=== PATIENT | female | born 1950 | race Caucasian/White ===

== ENCOUNTER 2024-02-07 09:50 | Emergency (ER) | payer OTHER ==
[2024-02-07] MEDS ORDERED: DICYCLOMINE HCL 20 MG/2 ML AMP IM ONE (10:18)
[2024-02-07] MEDS ORDERED: NA CHLORIDE 0.9% 500 ML ONE (10:18)
[2024-02-07] MEDS ORDERED: METOCLOPRAMIDE 10 MG/2mL INJ ONE (10:18)
[2024-02-07] MEDS ORDERED: DICYCLOMINE HCL 10 MG CAP ONE (10:19)
[2024-02-07 10:39] LABS: Absolute Eosinophils 0.1 K/uL (0-0.5); Absolute Lymphocytes (CBC) 1.1 K/uL (0.7-4.9); Absolute Monocytes 0.1 K/uL (0.1-1.3); Absolute Neutrophil 2.9 K/uL (1.8-8.0); Basophils % 0.8 % (0-1.3); Eosinophils % 3.2 % (0-4.4); Hematocrit 37.6 % (36.0-45.0); Hemoglobin 12.9 g/dL (12.0-15.0); Lymphocytes % 25.3 % (15.3-44.8); MCH 31.3 pg (27.0-35.0); MCHC 34.2 g/dL (32.0-36.0); MCV 91.6 fL (80-100); MPV 8.2 fL (7.6-11.3); Monocytes % 2.1 % (3.3-12.3); Neutrophils % 68.6 % (41.7-73.7); Nucleated Red Blood Cells % 0.6 % (0-0); Platelets 408 thou/uL (152-406); Red Cell Distribution Width 16.5 % (12.1-15.2)
[2024-02-07 10:55] LABS: Specific Gravity 1.026 (1.005-1.030); Sqamous Epithelial <5 /HPF (None Seen); Urine Bacteria None Seen /HPF (<20); Urine Bilirubin NEGATIVE (Negative); Urine Blood Negative (Negative); Urine Clarity Extremely Turbid (Clear); Urine Color Yellow (Yellow); Urine Culture Reflex Order NOT NEEDED; Urine Glucose NEGATIVE (Negative); Urine Ketones NEGATIVE (Negative); Urine Microscopic Reflex YN ORDER UMIC; Urine Mucus 2+ /HPF (None Seen); Urine Nitrite NEGATIVE (Negative); Urine Protein 1+ (Negative); Urine RBC <5 /HPF (None Seen); Urine Urobilinogen 1+ (Normal); Urine WBC <5 /HPF (<5); Urine pH 6.5 (5.0-7.0)
[2024-02-07 11:01] LABS: Albumin 3.5 g/dL (3.4-5.0); Albumin/Globulin Ratio 1.1 (1.1-1.8); Anion Gap 10.4 mEq/L (5.0-15.0); Bilirubin Total 0.8 mg/dL (0.2-1.0); Globulin 3.2 g/dL (2.3-3.5); Potassium 3.4 mEq/L (3.5-5.1); Protein, Total 6.7 g/dL (6.4-8.2)
--- NOTE | 2024-02-07 11:31 | RAD REPORT ---
EXAMINATION: CT ABDOMEN AND PELVIS WITH CONTRAST CLINICAL INDICATION: Female, 73 years old.lower abdomen pain, diarrhea TECHNIQUE: CT abdomen and pelvis was performed, after the administration of IV contrast, as per [facility] protocol. Axial, sagittal and coronal reconstructions were obtained. One or more of the following dose reduction techniques were used: Automated exposure control, adjustment of the mA and/o r kV according to patient size, and/or iterative reconstruction. Unless otherwise specified, incidental findings do not require dedicated imaging follow-up. [id number]. COMPARISON: No prior exam. FINDINGS: LOWER CHEST: Coronary calcific indications. LIVER: Normal in size and contour. No focal lesion. GALLBLADDER/BILE DUCT: Cholecystectomy? PANCREAS: Atrophic pancreas. SPLEEN: Normal size. No focal lesion. ADRENALS: Normal; no mass. KIDNEYS AND URETERS: Normal size and contour. No hydronephrosis. GASTROINTESTINAL TRACT: Mild wall thickening at the descending colon, sigmoid colon, and rectum with hyperenhancement. No bowel obstruction. No appendicitis. PERITONEUM: No ascites. LYMPH NODES: No lymphadenopathy. ABDOMINAL AORTA AND OTHER VESSELS: Normal caliber aorta and IVC. Atherosclerosis URINARY BLADDER: Normal contour. REPRODUCTIVE ORGANS: No pathologic process MUSCULOSKELETAL: No acute or suspicious osseous abnormality. ADDITIONAL FINDINGS: None. IMPRESSION: Mild wall thickening involving the descending colon to the rectum could reflect a mild colitis. No ot her acute findings identified. A few incidental findings as noted above.
--- NOTE | 2024-02-07 12:19 | ER ---
Nurse's Notes [facility] Name: Francoise Gallegos Age: 73 yrs Sex: Female : 1950 Arrival Date: 02/07/2024 Time: 09:50 Bed 15 Private MD: Diagnosis: Indeterminate colitis Presentation: 02/06 10:06 Chief complaint: Patient states: I am having lower abdominal cramps. The cancer center jb4 gave me Dexamethasone and it is not helping. I am also having diarrhea as well. Coronavirus screen: At this time, the client does not indicate any symptoms associated with coronavirus-19. Ebola Screen: No symptoms or risks identified at this time. Initial Sepsis Screen: Does the patient meet any 2 criteria? HR > 90 bpm. Yes Does the patient have a suspected source of infection? No. Patient's initial sepsis screen is negative. Risk Assessment: Do you want to hurt yourself or someone else? Patient reports no desire to harm self or others. Onset of symptoms was February 07, 2024. Transition of care: patient was not received from another setting of care. 10:06 Method Of Arrival: Ambulatory jb4 10:06 Acuity: MARTITA 3 jb4 Triage Assessment: 10:08 General: Appears in no apparent distress. uncomfortable, Behavior is calm, cooperative, jb4 appropriate for age. Pain: Complains of pain in left lower quadrant Pain does not radiate. Pain currently is 8 out of 10 on a pain scale. Quality of pain is described as crampy. Neuro: Level of Consciousness is awake, alert, obeys commands, Oriented to person, place, time, situation. Cardiovascular: Patient's skin is warm and dry. Respiratory: Airway is patent Respiratory effort is even, unlabored, Respiratory pattern is regular, symmetrical. GI: Abdomen is flat, non-distended, Reports lower abdominal pain, cramping, diarrhea. Derm: Skin is intact, Skin is pink, warm \T\ dry. Musculoskeletal: Circulation, motion, and sensation intact. Range of motion: intact in all extremities. Historical: - Allergies: 10:08 Levaquin; jb4 10:08 Flomax; jb4 10:08 Codeine; jb4 10:08 Adhesives; jb4 - PMHx: 10:08 Hypercholesterolemia; Hypertensive disorder; Diabetes mellitus; breast cancer; jb4 Parkinson's disease; IBS; - PSHx: 10:08 Cardiac stent; Cholecystectomy; hysterectomy; Nasal surgery; L shoulder; jb4 - Immunization history:: Adult Immunizations up to date. - Infectious Disease History:: Denies. - Social history:: Smoking status: Patient denies any tobacco usage or history of. Screenin:15 [facility] ED Fall Risk Assessment (Adult) History of falling in the last 3 months, ph including since admission No falls in past 3 months (0 pts) Confusion or Disorientation No (0 pts) Intoxicated or Sedated No (0 pts) Impaired Gait No (0 pts) Mobility Assist Device Used No (0 pt) Altered Elimination No (0 pt) Score/Fall Risk Level 0 - 2 = Low Risk Oriented to surroundings, Maintained a safe environment, Hourly rounding (assess needs \T\ fall precautionary measures) done. Abuse screen: Denies threats or abuse. Denies injuries from another. Nutritional screening: No deficits noted. Tuberculosis screening: No symptoms or risk factors identified. Assessment: 10:30 General: Appears in no apparent distress. comfortable, well groomed, Behavior is calm, ph cooperative, appropriate for age. Pain: Complains of pain in left lower quadrant. Neuro: Level of Consciousness is awake, alert, obeys commands, Oriented to person, place, time, situation. Cardiovascular: Capillary refill < 3 seconds in bilateral fingers Patient's skin is warm and dry. Respiratory: Airway is patent Respiratory effort is even, unlabored. GI: Bowel sounds present X 4 quads. Abd is soft X 4 quads Reports lower abdominal pain, diarrhea, Patient currently denies vomiting. Derm: Skin is pink, warm \T\ dry. Vital Signs: 10:06 BP 156 / 93; Pulse 96; Resp 16; Temp 98.4(O); Pulse Ox 98% on R/A; Weight 75.3 kg (R); jb4 Height 5 ft. 7 in. (R); Pain 8/10; 11:15 BP 142 / 78; Pulse 89; Resp 18; Pulse Ox 98% on R/A; ph 12:30 BP 150 / 90; Pulse 73; Resp 16; Temp 98.5; Pulse Ox 100% ; me1 10:06 Body Mass Index 26.00 (75.30 kg, 170.18 cm) [facility] 10:06 Pain Scale: Adult jb4 ED Course: 09:55 Patient arrived in ED. mg5 09:56 Geoffrey Whitaker PA is PHCP. cp 09:56 Bin Davis MD is Attending Physician. cp 10:00 Vanessa Weathers, DOMINIK is Primary Nurse. ph 10:08 Triage completed. jb4 10:08 Arm band placed on right wrist. jb4 10:25 Initial lab(s) drawn, by me, sent to lab. Urine collected: clean catch specimen. ph Inserted saline lock: 22 gauge in left antecubital area, using aseptic technique. Blood collected. Flushed with 10 mL NS. 11:15 Patient has correct armband on for positive identification. Bed in low position. Call ph light in reach. Side rails up X 1. Pulse ox on. NIBP on. Door closed. Noise minimized. Warm blanket given. Pillow given. 11:22 CT Abd/Pelvis - IV Contrast Only In Process Unspecified. EDMS 12:39 No provider procedures requiring assistance completed. IV discontinued, intact, me1 bleeding controlled, No redness/swelling at site. Pressure dressing applied. 12:40 Provided Education on: Medication and follow up, verbalized understanding.. me1 Administered Medications: 10:30 Drug: Dicyclomine IM 20 mg IM once Route: IM; Site: right deltoid; ph 12:06 Follow up: Response: No adverse reaction ph 10:30 Drug: metoCLOPramide IVP 10 mg IVP once; over 1 to 2 minutes Route: IVP; Site: left ph antecubital; 12:06 Follow up: Response: No adverse reaction ph 10:30 Drug: NS 0.9% IV 500 ml 500 ml IV at 1 bolus once; to be given as a bolus over 60 ph minutes Volume: 500 ml; Route: IV; Rate: 1 bolus; Site: left antecubital; 11:00 Follow up: Response: No adverse reaction; IV Status: Completed infusion; IV Intake: ph 500ml 12:29 Drug: Amoxicillin-Clavulanate PO 875 mg PO once Route: PO; me1 12:39 Follow up: Response: No adverse reaction me1 Medication: 11:15 VIS not applicable for this client. ph Intake: 11:00 IV: 500ml; Total: 500ml. ph Outcome: 12:18 Discharge ordered by . cp 12:39 Discharged to home ambulatory, with significant other, me1 12:39 Condition: stable 12:39 Discharge instructions given to patient, significant other, Instructed on discharge instructions, follow up and referral plans. medication usage, Demonstrated understanding of instructions, follow-up care, medications, Prescriptions given X 3, 12:40 Patient left the ED. me1 Signatures: Dispatcher [employer] Vanessa Dial RN RN Geoffrey Yun PA PA cp Bryson, James, RN RN jb4 Leatha Zarco RN RN me1 Mackenzie Dalton mg5 Corrections: (The following items were deleted from the chart) 10:10 10:08 PMHx: Cardiac stent; jose [email or web address] jb4
--- NOTE | 2024-02-07 12:19 | EDPHYS ---
Physician Documentation [facility] Name: Francoise Gallegos Age: 73 yrs Sex: Female : 1950 Arrival Date: 02/07/2024 Time: 09:50 Bed 15 Private MD: ED Physician Bin Davis HPI: 02/06 10:10 This 73 yrs old Female presents to ER via Ambulatory with complaints of Abdominal Pain. cp 10:10 The patient presents with abdominal pain in the lower abdomen. cp 10:10 Onset: The symptoms/episode began/occurred this morning. Associated signs and symptoms: cp Pertinent positives: nausea, chronic diarrhea that is worse today, Pertinent negatives: blood in stools, chest pain, constipation, fever, vomiting. The symptoms are described as crampy. Historical: - Allergies: 10:08 Levaquin; jb4 10:08 Flomax; jb4 10:08 Codeine; jb4 10:08 Adhesives; jb4 - PMHx: 10:08 Hypercholesterolemia; Hypertensive disorder; Diabetes mellitus; breast cancer; jb4 Parkinson's disease; IBS; - PSHx: 10:08 Cardiac stent; Cholecystectomy; hysterectomy; Nasal surgery; L shoulder; jb4 - Immunization history:: Adult Immunizations up to date. - Infectious Disease History:: Denies. - Social history:: Smoking status: Patient denies any tobacco usage or history of. ROS: 10:15 Constitutional: Negative for body aches, chills, fever, poor PO intake, cp 10:15 Eyes: Negative for injury, pain, redness, and discharge, cp 10:15 Cardiovascular: Negative for chest pain, 10:15 Respiratory: Negative for cough, shortness of breath, wheezing, 10:15 Abdomen/GI: Positive for abdominal pain, diarrhea, Negative for vomiting, constipation, 10:15 Neuro: Negative for altered mental status, dizziness, headache, weakness, cp 10:15 All other systems are negative, cp Exam: 10:20 Constitutional: The patient appears in no acute distress, alert, awake, non-toxic, well cp developed, well nourished, uncomfortable, 10:20 Head/Face: Normocephalic, atraumatic. cp 10:20 Eyes: Periorbital structures: appear normal, Conjunctiva: normal, no exudate, no cp injection, Sclera: no appreciated abnormality, Lids and lashes: appear normal, bilaterally, 10:20 ENT: External ear(s): are unremarkable, Nose: is normal, Mouth: Lips: moist, Oral mucosa: moist, Posterior pharynx: Airway: no evidence of obstruction, patent, 10:20 Chest/axilla: Inspection: normal, 10:20 Cardiovascular: Rate: normal, Rhythm: regular, Edema: is not appreciated, JVD: is not cp appreciated, 10:20 Respiratory: the patient does not display signs of respiratory distress, Respirations: normal, no use of accessory muscles, no retractions, labored breathing, is not present, Breath sounds: are clear throughout, no decreased breath sounds, no stridor, no wheezing, 10:20 Abdomen/GI: Inspection: abdomen appears normal, Bowel sounds: active, all quadrants, Palpation: soft, in all quadrants, moderate abdominal tenderness, in the right lower quadrant and left lower quadrant, rebound tenderness, is not appreciated, involuntary guarding, is not appreciated, 10:20 Back: pain, is absent, ROM is normal, 10:20 Neuro: Orientation: to person, place \T\ time. Mentation: is normal, Motor: moves all fours, strength is normal, Sensation: is normal, Vital Signs: 10:06 BP 156 / 93; Pulse 96; Resp 16; Temp 98.4(O); Pulse Ox 98% on R/A; Weight 75.3 kg (R); jb4 Height 5 ft. 7 in. (R); Pain 8/10; 11:15 BP 142 / 78; Pulse 89; Resp 18; Pulse Ox 98% on R/A; ph 12:30 BP 150 / 90; Pulse 73; Resp 16; Temp 98.5; Pulse Ox 100% ; me1 10:06 Body Mass Index 26.00 (75.30 kg, 170.18 cm) jb4 10:06 Pain Scale: Adult jb4 MDM: 10:03 Medical Screening Exam initiated cp 11:00 Differential diagnosis: appendicitis, bowel obstruction, diverticulitis, gastritis, cp non-specific abd pain, pancreatitis, Pyelonephritis, Ureterolithiasis, urinary tract infection, colitis. 12:17 Data reviewed: vital signs, nurses notes, lab test result(s), radiologic studies, and cp as a result, I will discharge patient. 12:17 I considered the following discharge prescriptions or medication management in the emergency department Medications were administered in the Emergency Department. See MAR. Special discussion: Based on the patient's Hx, exam, and Dx evaluation, there is no indication for emergent surgery or inpatient Tx. It is understood by the patient/guardian that if the Sx's persist or worsen they need to return immediately for re-evaluation. 02/06 10:11 Order name: CBC with Diff; Complete Time: 10:53 02/06 10:53 Interpretation: Normal except: PLT 408; RDW 16.5; MN% 2.1. 02/06 10:11 Order name: CMP; Complete Time: 11:08 02/06 11:09 Interpretation: Normal except: K 3.4; GLUC 190; GFR 69; AST 13. 02/06 10:11 Order name: Lipase; Complete Time: 11:08 02/06 11:12 Interpretation: Reviewed. 02/06 10:11 Order name: Urinalysis w/ reflexes; Complete Time: 11:01 02/06 11:01 Interpretation: Normal except: [facility] Extremely Turbid; UPROT 1+; UUROB 1+; HYAL 5-10. 02/06 10:11 Order name: CT Abd/Pelvis - IV Contrast Only; Complete Time: 11:44 02/06 10:11 Order name: IV Saline Lock; Complete Time: 11:09 02/06 10:11 Order name: Labs collected and sent; Complete Time: 11:09 Administered Medications: 10:30 Drug: Dicyclomine IM 20 mg IM once Route: IM; Site: right deltoid; ph 12:06 Follow up: Response: No adverse reaction ph 10:30 Drug: metoCLOPramide IVP 10 mg IVP once; over 1 to 2 minutes Route: IVP; Site: left ph antecubital; 12:06 Follow up: Response: No adverse reaction ph 10:30 Drug: NS 0.9% IV 500 ml 500 ml IV at 1 bolus once; to be given as a bolus over 60 ph minutes Volume: 500 ml; Route: IV; Rate: 1 bolus; Site: left antecubital; 11:00 Follow up: Response: No adverse reaction; IV Status: Completed infusion; IV Intake: ph 500ml 12:29 Drug: Amoxicillin-Clavulanate PO 875 mg PO once Route: PO; me1 12:39 Follow up: Response: No adverse reaction me1 Disposition: 19:37 Co-signature as Attending Physician, Bin Davis MD I reviewed the patient's care rn provided by the Advanced Practice Provider and agree with the diagnosis and treatment plan. Disposition Summary: 02/07/24 12:18 Discharge Ordered Notes: Location: Home cp Problem: new cp Symptoms: have improved cp Condition: Stable cp Diagnosis - Indeterminate colitis cp Followup: cp - With: Private Physician - When: 2 - 3 days - Reason: Recheck today's complaints Discharge Instructions: - Discharge Summary Sheet cp - Colitis cp Forms: - Medication Reconciliation Form cp - Antibiotic Education cp - Prescription Opioid Use cp - Patient Portal Instructions cp - Leadership Thank You Letter cp Prescriptions: - Augmentin 875-125 mg Oral Tablet - take 1 tablet ORAL route every 12 hours for 10 days; 20 tablet; Refills: 0, cp Product Selection Permitted - Reglan 10 mg Oral Tablet - take 1 tablet ORAL route every 6 hours take 30 minutes before meals and at cp bedtime; 20 tablet; Refills: 0, Product Selection Permitted - dicyclomine 20 mg Oral tablet - take 1 tablet ORAL route 4 times per day; 30 tablet; Refills: 0, Product cp Selection Permitted Signatures: Dispatcher [employer] EDBin Treadwell MD MD rn Hall, Patricia, RN RN ph Page, Corey, PA PA cp Bryson, James, RN RN jose [email or web address] Leatha Zarco RN RN me1 Corrections: (The following items were deleted from the chart) 10:10 10:08 PMHx: Cardiac stent; taco españa 11:45 11:45 Ova and Parasites+MR.LAB.BRZ ordered. EDPR EDPR 11:45 11:45 Rotavirus Antigen+BA.LAB.BRZ ordered. EDPR EDPR 11:45 11:45 Stool Culture+BA.LAB.BRZ ordered. EDPR EDPR 11:45 11:45 C.difficile GDH Ag \T\ Toxin AB+LAB.BRZ ordered. EDPR EDPR 12 12:19 12 11:00 Differential diagnosis: appendicitis, bowel obstruction, diverticulitis, cp gastritis, non-specific abd pain, pancreatitis, Pyelonephritis, Ureterolithiasis, urinary tract infection, cp
[2024-02-07] MEDS ORDERED: AMOX/K CLAV 875 MG TAB ONE (12:27)
[2024-02-07 13:25] VITALS: BP 150/90; TEMP 98.5; O2SAT 100
== END 2024-02-07 12:40 | disposition home or self-care (01) ==
LOC: ER 09:50
DX: K52.3 Indeterminate colitis (principal); E11.9 Type 2 diabetes mellitus without complications; I10 Essential (primary) hypertension; Z95.818 Presence of other cardiac implants and grafts; G20.A1 Parkinson's disease without dyskinesia, without mention of fluctuations
CPT/HCPCS: 85025; 81001; 36415; 83690; 80053; 74177; 96372; 96374; 99284; Q9967; J2765; J7040; J0500

== ENCOUNTER 2024-03-04 14:42 | Emergency (ER) | payer OTHER ==
--- NOTE | 2024-03-04 15:22 | RAD REPORT ---
EXAMINATION: ONE VIEW CHEST XR CLINICAL INDICATION: CHEST PAIN TECHNIQUE: Frontal chest projection is submitted. Examination is limited by patient positioning and t echnique. COMPARISON: No prior exam. FINDINGS: The lungs are well inflated and clear. The heart is normal in size. No displaced fractures identified . Left-sided port catheter is tip in SVC. IMPRESSION: No acute intrathoracic abnormalities.
[2024-03-04] MEDS ORDERED: MORPHINE 4 MG/ML SYR ONE (16:17)
[2024-03-04 16:23] LABS: Absolute Lymphocytes (CBC) 0.9 K/uL (0.7-4.9); Absolute Monocytes 0.2 K/uL (0.1-1.3); Absolute Neutrophil 4.1 K/uL (1.8-8.0); Basophils % 0.5 % (0-1.3); Eosinophils % 0.9 % (0-4.4); Hematocrit 31.3 % (36.0-45.0); Hemoglobin 10.8 g/dL (12.0-15.0); Lymphocytes % 16.5 % (15.3-44.8); MCH 32.1 pg (27.0-35.0); MCHC 34.4 g/dL (32.0-36.0); MCV 93.4 fL (80-100); MPV 7.6 fL (7.6-11.3); Monocytes % 4.3 % (3.3-12.3); Neutrophils % 77.8 % (41.7-73.7); Nucleated Red Blood Cells % 0.4 % (0-0); Platelets 330 thou/uL (152-406); RBC Red Blood Cell Count 3.35 M/uL (3.86-4.86); Red Cell Distribution Width 18.5 % (12.1-15.2)
[2024-03-04 16:25] LABS: PT Prothrombin Time 12.7 SECONDS (9.4-12.5); Protime INR 1.14
[2024-03-04 16:39] LABS: Anion Gap 7.6 mEq/L (5.0-15.0); Potassium 3.6 mEq/L (3.5-5.1); Troponin High Sensitivity 4.6 pg/mL (<58.9)
--- NOTE | 2024-03-04 16:45 | EDPHYS ---
Physician Documentation [facility] Name: Francoise Gallegos Age: 73 yrs Sex: Female : 1950 Arrival Date: 03/04/2024 Time: 14:42 Bed 15 Private MD: ED Physician Michael Muñoz HPI: 03/04 15:04 This 73 yrs old Female presents to ER via Wheelchair with complaints of Chest ec2 Pain. 15:04 Patient arrives today for midsternal chest pain. Reports pain is worse with pressing on ec2 the area. No falls injuries or trauma. Patient reports nonexertional. History of cardiac disease, hyperlipidemia, diabetes.. Historical: - Allergies: 14:56 Codeine; iw 14:56 Adhesives; iw 14:56 Flomax; iw 14:56 Levaquin; iw - PMHx: 14:56 diabetes mellitus; breast cancer; Hypercholesterolemia; Hypertensive disorder; ibs; iw Parkinson's disease; - PSHx: 14:56 cardiac stent; Cholecystectomy; hysterectomy; L shoulder; Nasal surgery; iw - Immunization history:: Adult Immunizations up to date. - Infectious Disease History:: Denies. - Social history:: Smoking status: Patient denies any tobacco usage or history of. ROS: 15:04 Constitutional: as per hpi ec2 Exam: 15:04 Constitutional: GEN: NAD Head: atraumatic Eyes: EOMI Ears: External ears are ec2 normal. CV: regular rate LUNGS: no respiratory distress ABD: non-distended SKIN: no evidence of rashes MSK: no evidence of trauma, reproducible chest wall pain. Vital Signs: 14:54 BP 149 / 96; Pulse 87; Resp 19; Temp 97.4; Pulse Ox 99% on R/A; Weight 76.66 kg; Height iw 5 ft. 7 in. ; Pain 9/10; 16:44 Pulse 81; Pulse Ox 99% ; ec2 16:59 BP 148 / 90; Pulse 75; Resp 15; Pulse Ox 99% ; ll1 14:54 Body Mass Index 26.47 (76.66 kg, 170.18 cm) iw 14:54 Pain Scale: Adult iw MDM: 14:56 Medical Screening Exam initiated ec2 15:04 Data reviewed: vital signs, nurses notes. ED course: Patient arrives today for ec2 evaluation of chest pain. EKG independently reviewed and interpreted by me, shows normal sinus rhythm, rate of 86, PVC noted, no acute ischemia identified, intervals are nonactionable. Will obtain lab work as well as chest x-ray and treat patient's pain with morphine. Differential diagnosis considered include processes such as ACS, costochondritis, PE, dissection. 16:42 ED course: Troponin within normal ranges. Labs otherwise nonactionable.. ec2 16:43 ED course: Nonacute chest x-ray. On reassessment patient remains well-appearing no ec2 acute distress. Will discharge home have the patient follow-up PCP. Return precautions given.. 03/04 14:56 Order name: Basic Metabolic Panel; Complete Time: 16:42 ec2 03/04 14:56 Order name: CBC with Diff ec2 03/04 14:56 Order name: PT-INR; Complete Time: 16:37 ec2 03/04 14:56 Order name: Troponin HS; Complete Time: 16:42 ec2 03/04 16:57 Order name: CBC Smear Scan EDMS 03/04 14:56 Order name: XRAY Chest (1 view); Complete Time: 15:24 ec2 03/04 14:56 Order name: EKG; Complete Time: 14:56 ec2 03/04 14:56 Order name: Cardiac monitoring; Complete Time: 16:05 ec2 03/04 14:56 Order name: EKG - Nurse/Tech; Complete Time: 15:05 ec2 03/04 14:56 Order name: IV Saline Lock; Complete Time: 16:13 ec2 03/04 14:56 Order name: Labs collected and sent; Complete Time: 16:13 ec2 03/04 14:56 Order name: O2 Per Protocol; Complete Time: 16:05 ec2 03/04 14:56 Order name: O2 Sat Monitoring; Complete Time: 16:05 ec2 Administered Medications: 16:29 Drug: morphine IVP or IV 4 mg IVP once over 4 mins Route: IVP; Infused Over: 4 mins; ll1 Site: left antecubital; 16:57 Follow up: Response: No adverse reaction; Pain is decreased; RASS: Alert and Calm (0) ll1 Disposition Summary: 03/04/24 16:45 Discharge Ordered Notes: Location: Home ec2 Condition: Stable ec2 Diagnosis - Chest pain, unspecified ec2 Followup: ec2 - With: Private Physician - When: - Reason: Re-evaluation by your physician Discharge Instructions: - Discharge Summary Sheet ec2 - Nonspecific Chest Pain, Adult, [id number] ec2 Forms: - Medication Reconciliation Form ec2 - Antibiotic Education ec2 - Prescription Opioid Use ec2 - Patient Portal Instructions ec2 - Leadership Thank You Letter ec2 Signatures: Dispatcher [employer] Kira Barajas RN RN iw Lewis, Lynsay, RN RN ll1 Michael Muñoz MD MD ec2
--- NOTE | 2024-03-04 16:45 | ER ---
Nurse's Notes [facility] Name: Francoise Gallegos Age: 73 yrs Sex: Female : 1950 Arrival Date: 03/04/2024 Time: 14:42 Bed 15 Private MD: Diagnosis: Chest pain, unspecified Presentation: 03/04 14:54 Chief complaint: Patient states: midsternal chest pain radiating to left arm and left iw elbow , has a chemo port on that side , she had a treatment on Friday and she was bleeding from the port and now it's just bruised. Coronavirus screen: At this time, the client does not indicate any symptoms associated with coronavirus-19. Ebola Screen: No symptoms or risks identified at this time. Initial Sepsis Screen: Does the patient meet any 2 criteria? No. Patient's initial sepsis screen is negative. Does the patient have a suspected source of infection? No. Patient's initial sepsis screen is negative. Risk Assessment: Do you want to hurt yourself or someone else? Patient reports no desire to harm self or others. Onset of symptoms was March 04, 2024. 14:54 Method Of Arrival: Wheelchair iw 14:54 Acuity: MARTITA 3 iw Historical: - Allergies: 14:56 Codeine; iw 14:56 Adhesives; iw 14:56 Flomax; iw 14:56 Levaquin; iw - PMHx: 14:56 diabetes mellitus; breast cancer; Hypercholesterolemia; Hypertensive disorder; ibs; iw Parkinson's disease; - PSHx: 14:56 cardiac stent; Cholecystectomy; hysterectomy; L shoulder; Nasal surgery; iw - Immunization history:: Adult Immunizations up to date. - Infectious Disease History:: Denies. - Social history:: Smoking status: Patient denies any tobacco usage or history of. Screenin:59 [facility] ED Fall Risk Assessment (Adult) History of falling in the last 3 months, ll1 including since admission No falls in past 3 months (0 pts) Confusion or Disorientation No (0 pts) Intoxicated or Sedated No (0 pts) Impaired Gait No (0 pts) Mobility Assist Device Used No (0 pt) Altered Elimination No (0 pt) Score/Fall Risk Level 0 - 2 = Low Risk Maintained a safe environment, Hourly rounding (assess needs \T\ fall precautionary measures) done. Abuse screen: Denies threats or abuse. Nutritional screening: No deficits noted. Tuberculosis screening: No symptoms or risk factors identified. Assessment: 16:15 General: Appears uncomfortable, Behavior is calm, cooperative, appropriate for age. ll1 Pain: Complains of pain in chest Quality of pain is described as aching, pressure, Pain began 2 hours ago. Cardiovascular: Reports chest pain. 17:00 Pain: Pain radiates to left arm. ll1 Vital Signs: 14:54 BP 149 / 96; Pulse 87; Resp 19; Temp 97.4; Pulse Ox 99% on R/A; Weight 76.66 kg; Height iw 5 ft. 7 in. ; Pain 9/10; 16:44 Pulse 81; Pulse Ox 99% ; ec2 16:59 BP 148 / 90; Pulse 75; Resp 15; Pulse Ox 99% ; ll1 14:54 Body Mass Index 26.47 (76.66 kg, 170.18 cm) iw 14:54 Pain Scale: Adult iw ED Course: 14:43 Patient arrived in ED. mr 14:47 Michael Muñoz MD is Attending Physician. ec2 14:56 Triage completed. iw 14:56 Arm band placed on. iw 15:05 EKG done, by ED staff, reviewed by Michael Muñoz MD. ap3 15:19 XRAY Chest (1 view) In Process Unspecified. EDMS 16:05 Gregorio Christianson, RN is Primary Nurse. ll1 16:15 Patient has correct armband on for positive identification. Provided Education on: ER ll1 procedures and process. Client placed on continuous cardiac and pulse oximetry monitoring. NIBP monitoring applied. desk monitor on. 16:15 Initial lab(s) drawn, by me, sent to lab. ll1 16:24 Inserted saline lock: 22 gauge in left antecubital area, using aseptic technique. Blood ll1 collected. Flushed with 10 mL NS. 16:58 No provider procedures requiring assistance completed. IV discontinued, intact, ll1 bleeding controlled, No redness/swelling at site. Pressure dressing applied. Patient maintains SpO2 saturation greater than 95% on room air. Administered Medications: 16:29 Drug: morphine IVP or IV 4 mg IVP once over 4 mins Route: IVP; Infused Over: 4 mins; ll1 Site: left antecubital; 16:57 Follow up: Response: No adverse reaction; Pain is decreased; RASS: Alert and Calm (0) ll1 Medication: 17:00 VIS not applicable for this client. ll1 Outcome: 16:45 Discharge ordered by . ec2 16:59 Discharged to home ambulatory, ll1 16:59 Condition: stable 16:59 Discharge instructions given to patient, Instructed on discharge instructions, follow up and referral plans. Demonstrated understanding of instructions, follow-up care, 17:01 Patient left the ED. ll1 Signatures: Dispatcher [employer] EDErika Gentile, Reg Reg mr Kira Andrews, RN RN Mayte Islas RN RN Gregorio Sloan RN RN ll1 Michael Muñoz MD MD ec2 Corrections: (The following items were deleted from the chart) 14:56 14:54 BP 149 / 96; Pulse 87bpm; Resp 19bpm; Pulse Ox 99% RA; Temp 97.4F; Pain 9/10, iw Adult; iw
[2024-03-04 16:57] LABS: Blood Morphology Comment NOT SEEN (NOT SEEN); Platelet Estimate ADEQ; White Blood Cell Scan OK (OK)
[2024-03-04 20:02] VITALS: TEMP 97.4; O2SAT 99
[2024-03-04 20:05] VITALS: BP 148/90
--- NOTE | 2024-03-05 12:42 | EKG ---
Test Date: 2024-03-04 Test Time: 15:02:06 Hide Buyer: RUPESH MEASUREMENT RESULTS: Intervals: Rate: 86 PA: 150 QRSD: 76 QT: 368 QTc: 440 [place]: P: 30 PA: 150 QRS: 25 T: 108 INTERPRETIVE STATEMENTS: Sinus rhythm with occasional premature ventricular complexes Abnormal QRS-T angle, consider primary T wave abnormality Abnormal ECG No previous ECG available for comparison Electronically Signed On 03-05-24 12:40:34 NETWORK PROGRAM MANAGER by Enzo Sousa
== END 2024-03-04 17:01 | disposition home or self-care (01) ==
LOC: ER 14:42
DX: R07.9 Chest pain, unspecified (principal); I10 Essential (primary) hypertension; E11.9 Type 2 diabetes mellitus without complications; E78.00 Pure hypercholesterolemia, unspecified; G20.A1 Parkinson's disease without dyskinesia, without mention of fluctuations; Z85.3 Personal history of malignant neoplasm of breast; Z88.1 Allergy status to other antibiotic agents; Z88.5 Allergy status to narcotic agent
CPT/HCPCS: 36415; 71045; 80048; 84484; 85025; 85610; 93005; 96374; 99285